=== PATIENT | male | born 1940 | race Caucasian/White ===

== ENCOUNTER 2019-01-19 09:09 | Outpatient (CLI) | payer MEDICARE, OTHER ==
--- NOTE | 2019-01-19 09:28 | RAD ---
EXAM: 3 views of the right shoulder HISTORY: Right shoulder pain COMPARISON: None FINDINGS: There is no evidence of acute fracture or dislocation. No degenerative changes are present. No soft tissue swelling is seen. The visualized thorax is unremarkable. IMPRESSION: No evidence of acute osseous abnormality.
[2019-01-19 09:40] LABS: ALT (SGPT) 23 U/L (8-55); AST (SGOT) 31 U/L (5-34); Albumin 4.4 g/dL (3.4-4.8); Alkaline Phosphatase 47 U/L (40-110); Anion Gap 14 mmol/L (10-20); BUN (Urea Nitrogen) 10 mg/dL (8.4-25.7); Bilirubin, Total 0.7 mg/dL (0.2-1.2); Calc. Creatinine Clearance 0 mL/min (70-130); Calcium 9.3 mg/dL (7.8-10.44); Carbon Dioxide 28 mmol/L (23-31); Cardiac Risk 3.1 (Less than 4.5); Chloride 105 mmol/L (98-107); Cholesterol 213 mg/dl (< 200 Desired); Estimated GFR-MDRD Greater than 90; Globulin 2.7 g/dL (2.4-3.5); Glucose 123 mg/dL (83-110); HDL Cholesterol 69 mg/dL (>60 Neg Risk); LDL Cholesterol, Calculated 126 mg/dL; Potassium 4.3 mmol/L (3.5-5.1); Protein, Total 7.1 g/dL (5.8-8.1); Sodium 143 mmol/L (136-145); Triglycerides 90 mg/dL (Less than 150)
[2019-01-19 12:07] LABS: Hemoglobin A1c 5.2 % (4.0-6.0)
== END 2019-01-19 09:10 | disposition home or self-care (01) ==
LOC: SCSRAD 09:09
PROVIDERS: ATTEND Family Medicine
DX: M12.811 Other specific arthropathies, not elsewhere classified, right shoulder (principal); E11.9 Type 2 diabetes mellitus without complications; E78.5 Hyperlipidemia, unspecified
CPT/HCPCS: 36415; 80053; 80061; 83036

== ENCOUNTER 2019-01-29 14:44 | Outpatient (CLI) | payer MEDICARE, OTHER ==
--- NOTE | 2019-01-29 16:04 | MRI ---
MR OF RIGHT SHOULDER 01/29/19 PROVIDED CLINICAL HISTORY: Right shoulder pain. FINDINGS: There is a small full thickness, partial width tear involving the anterior distal supraspinatus tendo n at the footplate. The components of the rotator cuff appear otherwise intact. The long head biceps tendon appears intact and normally located. The glenoid labrum and glenohumeral articular cartilage are suboptimally evaluated in the absence of joint distention. The amount of fluid within the glenohumeral joint appears physiologic. There is gre ater than physiologic subacromial, subdeltoid bursal fluid. Acromioclavicular joint osteoarthrosis is noted with mild mass effect upon the subjacent supraspinatu s. Rotator cuff muscular volume appears preserved. No focal concerning regional marrow or muscular si gnal abnormality is apparent. IMPRESSION: 1. Small full thickness, partial width tear involving the anterior distal supraspinatus tendon a t the footplate. 2. Presumably attendant greater than physiologic subacromial subdeltoid bursa fluid. 3. Acromioclavicular joint osteoarthrosis. POS: [facility]
== END 2019-01-29 14:45 | disposition home or self-care (01) ==
LOC: BICMRI 14:44
PROVIDERS: ATTEND Family Medicine
DX: M12.811 Other specific arthropathies, not elsewhere classified, right shoulder (principal); M19.011 Primary osteoarthritis, right shoulder; M75.101 Unspecified rotator cuff tear or rupture of right shoulder, not specified as traumatic